=== PATIENT | male | born 1995 | race Caucasian/White ===

== ENCOUNTER 2019-12-17 14:26 | Emergency (ER) | payer OTHER ==
[~2019-12-17] VITALS: Ht 180.3 cm; Wt 88.6 kg
[2019-12-17] MEDS ORDERED: ondansetron/PF 4mg/2ml inj IV ONE (14:50)
[2019-12-17] MEDS ORDERED: morphine 4 MG/ML inj SYRINge IV ONE (14:50)
[2019-12-17 14:57] LABS: BASOPHILS # (AUTO) 0.1 X10'3 (0-0.2); BASOPHILS % (AUTO) 1.2 % (0-1); EOSINOPHILS # (AUTO) 0.3 X10'3 (0-0.9); EOSINOPHILS % (AUTO) 3.1 % (0-6); HEMOGLOBIN 15.2 g/dl (14.0-17.9); LYMPHOCYTES # (AUTO) 2.6 X10'3 (1.1-4.8); LYMPHOCYTES % (AUTO) 26.8 % (21-51); MEAN CORPUSCULAR HEMOGLOBIN 29.9 PG (27.0-31.0); MEAN CORPUSCULAR HGB CONC 34.6 g/dL (33.0-36.5); MEAN CORPUSCULAR VOLUME 86.5 FL (78-98); MEAN PLATELET VOLUME 8.4 FL (7.4-10.4); MONOCYTES # (AUTO) 0.9 X10'3 (0-0.9); MONOCYTES % (AUTO) 9.2 % (2-12); NEUTROPHILS # (AUTO) 5.7 X10'3 (1.8-7.7); NEUTROPHILS % (AUTO) 59.7 % (42-75); PLATELET COUNT 239 X10'3 (140-440); RED BLOOD COUNT 5.08 X10'6 (4.70-6.10); RED CELL DISTRIBUTION WIDTH 12.6 % (11.5-14.5); WHITE BLOOD COUNT 9.5 X10'3 (4.5-11.0)
[2019-12-17] MEDS ORDERED: BUPIVAcaine/PF 2.5 mg/ml (0.25%) 30ml vial ONE (14:57)
[2019-12-17] MEDS ORDERED: ceFAZolin 1GM/D5W- ADD-VANTAGE 50 ML IV STA (15:01)
[2019-12-17] MEDS ORDERED: ceFAZolin/D5W- 1GM premix 50 ML IV STA (15:03)
[2019-12-17 15:12] LABS: ALANINE AMINOTRANSFERASE 14 U/L (12-78); ALBUMIN 4.2 G/DL (3.4-5.0); ALBUMIN/GLOBULIN RATIO 1.6 (1.1-1.5); ALKALINE PHOSPHATASE 62 IU/L (46-116); ANION GAP 7 (8-16); ASPARTATE AMINO TRANSFERASE 17 U/L (10-37); BILIRUBIN,TOTAL 0.3 MG/DL (0.1-1.0); BLOOD UREA NITROGEN 20 MG/DL (7-18); CALCIUM 8.8 MG/DL (8.5-10.1); CHLORIDE 102 MMOL/L (99-107); GLUCOSE 155 MG/DL (70-104); POTASSIUM 3.3 MMOL/L (3.5-5.1); SODIUM 139 MMOL/L (135-145); TOTAL CARBON DIOXIDE 29.8 MMOL/L (24-32); TOTAL PROTEIN 6.8 G/DL (6.4-8.2); eGFR > 90 ML/MIN
[2019-12-17] MEDS ORDERED: ringers solution, lacted 1,000 ML IV SCH (15:14)
[2019-12-17] MEDS ORDERED: proCHLORperazine 10 MG/2 ml inj IV PRN (15:15)
[2019-12-17] MEDS ORDERED: meperidine/PF 25mg/ml syringe IV PRN ×3 (15:15)
[2019-12-17] MEDS ORDERED: morphine 2 MG/ML inj. syringe IV PRN (15:15)
[2019-12-17] MEDS ORDERED: acetaminophen 1,000mg/100ml IV 100 ML IV PRN (15:15)
[2019-12-17] MEDS ORDERED: morphine 4 MG/ML inj SYRINge IV PRN (15:15)
[2019-12-17] MEDS ORDERED: ondansetron/PF 4mg/2ml inj IV PRN (15:15)
[2019-12-17] MEDS ORDERED: ketorolac trometh. 30mg/ml inj. IV ONE (15:15)
[2019-12-17] MEDS ORDERED: NO HOME MEDS (15:25)
[2019-12-17] MEDS ORDERED: midazolam 2 mg/2 ml injection ONE (15:26)
[2019-12-17] MEDS ORDERED: famotidine/PF 10 mg/ml inj IV ONE (15:26)
[2019-12-17] MEDS ORDERED: fentaNYL /PF 50mcg/ml 5ml ampule ONE (15:33)
[2019-12-17] MEDS ORDERED: BUPIVAcaine 0.5% inj/PF 30 ML ONE (15:34)
[2019-12-17] MEDS ORDERED: bacitracin 15gm ointment TP ONE (16:15)
[2019-12-17] MEDS ORDERED: LIDOcaine 2% (20mg/ml) 5ml vial ONE ×2 (16:23)
[2019-12-17 16:28] VITALS: BP 123/77
--- NOTE | 2019-12-17 16:28 | NUR ---
Received from OR via [facility], accompanied by Anesthesiologist DR VILLA and report given by Anesthesiologist. PT AWAKE, DENIES PAIN, RIGHT HAND W/GAUZE DRSG COVERING FINGERS W/SMALL AMT OF BLOODY DRAINAGE. Addendum: 12/17/19 at 1734 by Landy Kelley RN Amended: Links added.
[2019-12-17 16:38] VITALS: BP 112/57
[2019-12-17 16:48] VITALS: BP 115/66
[2019-12-17 16:58] VITALS: BP 123/72
--- NOTE | 2019-12-17 17:08 | NUR ---
D/C INSTRUCTIONS GIVEN AND GONE OVER W/PT WHO VERBALIZED UNDERSTANDING, PT D/CD TO HOME VIA W/C TO PRIVATE VEHICLE W/O INCIDENT. Addendum: 12/17/19 at 1740 by Landy Kelley RN Amended: Links added.
== END 2019-12-17 17:08 | disposition home or self-care (01) ==
LOC: ER 14:27
DX: S68.120A Partial traumatic metacarpophalangeal amputation of right index finger, initial encounter (principal); S68.122A Partial traumatic metacarpophalangeal amputation of right middle finger, initial encounter; W23.0XXA Caught, crushed, jammed, or pinched between moving objects, initial encounter; Y93.89 Activity, other specified; Y92.89 Other specified places as the place of occurrence of the external cause; Y99.8 Other external cause status
CPT/HCPCS: 26236; 36415; 73130; 80053; 85025; 85610; 86885; 86900; 86901; 96374; 96375; 99285; A6222; A6402; J2001; J2250; J2270; J2405; J3010; J3490; 64415; 99284; A4215; A6449; A7000